=== PATIENT | male | born 1960 | race Caucasian/White ===

== ENCOUNTER 2024-08-28 18:35 | Emergency (ER) | payer MEDICARE, OTHER ==
[2024-08-28 18:45] VITALS: TEMP 99.2
--- NOTE | 2024-08-28 18:58 | ERPHSYRPT ---
- History of Present Illness Time Seen by Provider: 08/28/24 18:50 Historian: patient, EMS Exam Limitations: no limitations Patient Subjective Stated Complaint: Pt reports he started vomiting today along with experiencing stomach pain throughout entire stomach. Triage Nursing Assessment: Pt alert and oriented to person, time, place. Arrived via ambulance, transfered from EMS staff from EMS cot to ED cot. Skin w/p/d. Wound to left upper leg covered with dressing. Active bowel sounds in all four quads. No active vomiting at this time. Abdomen tender in all quads with palpation. Physician History: This is a 64-year-old white male patient who presents to the emergency department with abdominal pain and brought to the emergency department by the general activities therapist service. Patient's primary care provider is Dr. Beard. Today, when the patient woke up, he had several episodes of intermittent vomiting with generalized abdominal pain. Patient denies chest pain. Patient denies shortness of breath, patient denies cough. He has not had a fever. Patient has a history of diabetes and hypertension. Timing/Duration: today Activities at Onset: none Quality: aching Abdominal Pain Onset Location: generalized abdomen Severity of Pain-Max: mild Severity of Pain-Current: mild Modifying Factors: Improves With: vomiting Associated Symptoms: loss of appetite, nausea, vomiting Previous symptoms: no prior history, no recent treatment Allergies/Adverse Reactions: No Known Drug Allergies Allergy (Unverified 08/28/24 18:43) Hx Tetanus, Diphtheria Vaccination/Date Given: Yes Hx Influenza Vaccination/Date Given: Yes Hx Pneumococcal Vaccination/Date Given: No Travel Risk - International Travel Have you traveled outside of the country in past 3 weeks: No - Emerging Infectious Disease Are you exhibiting symptoms associated with any current EIDs: Yes Symptoms: Abdominal Pain, Vomitting - Review of Systems Constitutional: No Symptoms Eyes: No Symptoms Ears, Nose, & Throat: No Symptoms Respiratory: No Symptoms Cardiac: No Symptoms Abdominal/Gastrointestinal: Abdominal Pain, Nausea, Vomiting, Appetite Changes Genitourinary Symptoms: No Symptoms Musculoskeletal: No Symptoms Skin: No Symptoms Neurological: No Symptoms Psychological: No Symptoms Endocrine: No Symptoms Hematologic/Lymphatic: No Symptoms Immunological/Allergic: No Symptoms All Other Systems: Reviewed and Negative - Past Medical History Pertinent Past Medical History: Yes Cardiac History: Hypertension Endocrine Medical History: Diabetes Type II Other Medical History: necrotizing faciitis - Past Surgical History Past Surgical History: Yes Other Surgical History: unknown surgery on neck - Social History Smoking Status: Current every day smoker Exposure to second hand smoke: Yes Drug Use: none - Social Determinants of Health Will the patient participate in the screening: Declined to provide - Nursing Vital Signs Nursing Vital Signs: Initial Vital Signs Pulse Rate 101 H 08/28/24 18:36 Respiratory Rate 13 08/28/24 18:36 Blood Pressure 113/73 08/28/24 18:36 O2 Sat by Pulse Oximetry 99 08/28/24 18:36 Pain Scale Pain Intensity 0 - Physical Exam General Appearance: no apparent distress, alert, thin Eye Exam: PERRL/EOMI, eyes nml inspection Ears, Nose, Throat Exam: normal ENT inspection, moist mucous membranes Neck Exam: normal inspection, non-tender, supple, full range of motion Respiratory Exam: normal breath sounds, lungs clear, airway intact, No chest tenderness, No respiratory distress Cardiovascular Exam: regular rate/rhythm, normal heart sounds, normal peripheral pulses Gastrointestinal/Abdomen Exam: soft, normal bowel sounds, tenderness (Mild diffuse to palpation), guarding (Mild diffuse to palpation), No rebound Rectal Exam: not done Back Exam: normal inspection, normal range of motion, No CVA tenderness, No vertebral tenderness Extremity Exam: normal inspection, normal range of motion, pelvis stable Neurologic Exam: alert, oriented x 3, cooperative, personnel recruiter II-XII nml as tested, nml cerebellar function, nml station & gait, sensation nml Skin Exam: normal color, warm, dry Lymphatic Exam: No adenopathy SpO2 Interpretation: normal SpO2: 97 O2 Delivery: Room Air - Course Nursing assessment & vital signs reviewed: Yes EKG Interpreted by Me: RATE (96), Sinus Rhythm, NORMAL AXIS, NORMAL INTERVALS, NORMAL QRS, NORMAL ST-T, Other (No acute ischemic changes on today's twelve-lead EKG. QTc is 448) Ordered Tests: Active Orders 24 hr Category Date Time Status IV Insertion STAT Care 08/28/24 18:58 Active ABDOMEN AND PELVIS W/0 CONTRAS [CT] Stat Exams 08/28/24 18:58 Taken AMYLASE Stat Lab 08/28/24 19:20 Completed BLOOD CULTURE Stat Lab 08/28/24 19:25 Received CBC W DIFF Stat Lab 08/28/24 19:20 Completed CMP Stat Lab 08/28/24 19:20 Completed LIPASE Stat Lab 08/28/24 19:20 Completed UA W/RFX UR CULTURE Stat Lab 08/28/24 20:08 Completed Medication Summary Discontinued Medications Generic Name Dose Route Start Last Admin Trade Name Milli PRN Reason Stop Dose Admin Sodium Chloride 1,000 mls @ 999 mls/hr 08/28/24 18:58 08/28/24 21:15 Sodium Chloride 0.9% 1000 Ml IV 08/28/24 19:58 Infused .Q1H1M STA Infusion Sodium Chloride Confirm 08/28/24 19:59 Sodium Chloride 0.9% 1000 Ml Administered 08/28/24 20:00 Dose 1,000 mls @ ud .ROUTE .STK-MED ONE Levofloxacin 500 mg 08/28/24 21:53 08/28/24 22:06 Levofloxacin 500 Mg Tablet PO 08/28/24 21:54 500 mg STAT ONE Administration Levofloxacin Confirm 08/28/24 22:01 Levofloxacin 500 Mg Tablet Administered 08/28/24 22:02 Dose 500 mg .ROUTE .STK-MED ONE Metronidazole 500 mg 08/28/24 21:53 08/28/24 22:06 Metronidazole 500 Mg Tablet PO 08/28/24 21:54 500 mg STAT ONE Administration Metronidazole Confirm 08/28/24 22:01 Metronidazole 500 Mg Tablet Administered 08/28/24 22:02 Dose 500 mg .ROUTE .STK-MED ONE Morphine Sulfate 4 mg 08/28/24 18:58 08/28/24 20:12 Morphine Sulfate 4 Mg/Ml Injection IV 08/28/24 18:59 4 mg STAT ONE Administration Morphine Sulfate Confirm 08/28/24 19:58 Morphine Sulfate 4 Mg/Ml Injection Administered 08/28/24 19:59 Dose 4 mg .ROUTE .STK-MED ONE Ondansetron HCl 4 mg 08/28/24 18:58 08/28/24 20:12 Ondansetron Hcl 4 Mg/2 Ml Vial IV 08/28/24 18:59 4 mg STAT ONE Administration Ondansetron HCl Confirm 08/28/24 19:58 Ondansetron Hcl 4 Mg/2 Ml Vial Administered 08/28/24 19:59 Dose 4 mg .ROUTE .STK-MED ONE Ondansetron HCl 4 mg 08/28/24 21:53 08/28/24 22:06 Zofran 4 Mg/Udtablet Orally Disintegrating PO 08/28/24 21:54 4 mg STAT ONE Administration Ondansetron HCl Confirm 08/28/24 22:01 Zofran 4 Mg/Udtablet Orally Disintegrating Administered 08/28/24 22:02 Dose 4 mg .ROUTE .STK-MED ONE Pantoprazole Sodium 40 mg 08/28/24 18:58 08/28/24 20:12 Pantoprazole 40 Mg Vial IV 08/28/24 18:59 40 mg STAT ONE Administration Pantoprazole Sodium Confirm 08/28/24 19:58 Pantoprazole 40 Mg Vial Administered 08/28/24 19:59 Dose 40 mg IV .STK-MED ONE Lab/Rad Data: Laboratory Result Diagrams 08/28/24 19:20 08/28/24 19:20 Laboratory Results 08/28/24 08/28/24 08/28/24 Range/Units 20:08 19:20 19:20 WBC 9.3 H (4.23-9.07) x10^3/uL RBC 3.75 L (4.63-6.08) x10^6/uL Hgb 10.2 L (13.7-17.5) g/dL Hct 32.0 L (40.1-51.0) % MCV 85.3 (79.0-92.2) fL MCH 27.2 (25.7-32.2) pg MCHC 31.9 L (32.3-36.5) g/dL RDW 12.9 (11.6-14.4) % Plt Count 483 H (163-337) x10^3/uL MPV 9.0 L (9.4-12.4) fL Gran % 61.7 (34.0-67.9) % Immature Gran % (Auto) 0.3 (0.001-0.429) % Nucleat RBC Rel Count 0.0 (0.00-0.2) % Eos # (Auto) 0.39 (0.04-0.54) x10^3/uL Immature Gran # (Auto) 0.03 (0.001-0.031) x10^3u/L Absolute Lymphs (auto) 1.90 (1.32-3.57) x10^3/uL Absolute Monos (auto) 1.15 H (0.30-0.82) x10^3/uL Absolute Nucleated RBC 0.00 (0.00-0.012) x10^3u/L Lymphocytes % 20.5 L (21.8-53.1) % Monocytes % 12.4 H (5.3-12.2) % Eosinophils % 4.2 (0.8-7.0) % Basophils % 0.9 (0.2-1.2) % Absolute Granulocytes 5.73 H (1.78-5.38) x10^3/uL Basophils # 0.08 (0.01-0.08) x10^3/uL Sodium 135 (135-145) mmol/L Potassium 4.0 (3.5-5.1) mmol/L Chloride 96 L (98-107) mmol/L Carbon Dioxide 32 H (22-30) mmol/L Anion Gap 11.1 (5-15) MEQ/L BUN 14 (9-20) mg/dL Creatinine 0.68 (0.66-1.25) mg/dL Estimated GFR 103.2 ML/MIN Glucose 213 H (74-106) mg/dL Calcium 8.7 (8.4-10.2) mg/dL Total Bilirubin 0.20 (0.2-1.3) mg/dL AST 16 L (17-59) U/L ALT 12 (0-50) U/L Alkaline Phosphatase 81 (38-126) U/L Serum Total Protein 6.8 (6.3-8.2) g/dL Albumin 3.5 (3.5-5.0) g/dL Amylase 46 (30-110) U/L Lipase 52 (23-300) U/L Urine Color Yellow (Yellow) Urine Appearance Clear (Clear) Urine pH 7.0 (4.6-8.0) Ur Specific Watkins 1.015 (1.005-1.030) Urine Protein Negative (Negative) Urine Glucose (UA) Negative (Negative) mg/dL Urine Ketones Negative (Negative) Urine Blood Negative (Negative) Urine Nitrite Negative (Negative) Urine Bilirubin Negative (Negative) Urine Urobilinogen 0.2 (0.2) mg/dL Ur Leukocyte Esterase Negative (Negative) U Hyaline Cast (Auto) NONE SEEN (0-2) /LPF Urine Microscopic RBC 0-2 (0-5) /HPF Urine Microscopic WBC 0-2 (0-5) /HPF Ur Epithelial Cells None Seen (None Seen) /HPF Urine Bacteria None Seen (None Seen) /HPF Urine Culture Reflexed NO (NO) - Progress Progress: improved, pain not gone completely Progress Note: 08/28/24 21:59 My medical decision making and the assignment of moderate complexity to this patient's medical issue today is based on review of the patient's past medical history, review of the patient's medication list, review of the patient drug allergy list, history present illness and physical findings on examination. The workup includes placement of an intravenous line, CBC, CMP, amylase, lipase, twelve-lead EKG, urinalysis and CT scan of the abdomen pelvis without contrast. Differential diagnosis includes but is not limited to bowel obstruction, pancreatitis, colitis, appendicitis 08/28/24 22:00 I interpreted the patient's laboratory data results. Based on the laboratory data results, the patient has no acute, emergent medical issue. CT scan of the abdomen pelvis without contrast was interpreted by the radiologist and I reviewed the impression. The impression states mid jejunal bowel wall thickening favoring enteritis. There is also constipation and rectal impaction. There is evidence of chronic pancreatitis. 08/28/24 22:15 The patient does not recall which pharmacy he uses and therefore I hand wrote 3 prescriptions: 1. Zofran 4 mg ODT number 10 tablets 1 p.o. every 6 hours as needed nausea vomiting 2. Cipro 500 mg orally number 14 tablets 1 p.o. every 12 hours for 7 days. 3. Flagyl 500 mg orally number 21 tablets 1 p.o. orally every 8 hours for 7 days Counseled pt/family regarding: lab results, diagnosis, need for follow-up, rad results Medical Desision Making - Independent Historian Additional History obtained from: Carding Doubler/EMT - Social Determinants of Health Limited access to: transportation - Diagnostic Testing Diagnostic test were ordered, analyzed, and reviewed by me: Yes Radiological Interpretation: Reviewed by me, Teleradiologist Report - Risk of complications The pt has a mod risk of morbidity or mortality based on: Need for prescription drug management - Departure Departure Disposition: Home Clinical Impression: Constipation, Enteritis Condition: Stable Critical Care Time: No Referrals: DAVE BEARD MD [Primary Care Provider] - Follow up/PCP as directed Additional Instructions: Drink plenty of clear liquids. Take your antibiotics and other medications as prescribed. To help relieve your constipation you may use [id number] fleets enema as well as MiraLAX. Follow directions on the package. Call your primary care provider tomorrow, 08/29/2024 to make arrangements for follow-up appointment for further evaluation management.
[2024-08-28 19:43] LABS: Absolute Neutrophil Ct (ANC) 5.73 x10^3/uL (1.78-5.38); BASOPHIL % 0.9 % (0.2-1.2); Basophil (Absolute #) 0.08 x10^3/uL (0.01-0.08); Eosinophil % 4.2 % (0.8-7.0); Eosinophil (Absolute #) 0.39 x10^3/uL (0.04-0.54); Hemoglobin 10.2 g/dL (13.7-17.5); IMMATURE GRAN # 0.03 x10^3u/L (0.001-0.031); IMMATURE GRAN % 0.3 % (0.001-0.429); Lymphocytes % 20.5 % (21.8-53.1); Mean Cell Volume 85.3 fL (79.0-92.2); Mean Corpuscular Hemoglobin 27.2 pg (25.7-32.2); Mean Corpuscular Hgb Concent. 31.9 g/dL (32.3-36.5); Monocyte (Absolute #) 1.15 x10^3/uL (0.30-0.82); Monocytes % 12.4 % (5.3-12.2); Neutrophil % 61.7 % (34.0-67.9); Platelet Count 483 x10^3/uL (163-337); Red Blood Count 3.75 x10^6/uL (4.63-6.08); Red Cell Distribution Width 12.9 % (11.6-14.4); White Blood Count 9.3 x10^3/uL (4.23-9.07)
[2024-08-28] MEDS ORDERED: Zofran 4 MG/2 ML VIAL ONE (19:58)
[2024-08-28] MEDS ORDERED: MORPHINE SULFATE 4 MG INJ ONE (19:58)
[2024-08-28] MEDS ORDERED: PROTONIX 40 MG IV IV ONE (19:58)
[2024-08-28] MEDS ORDERED: Sodium Chloride 0.9% 1000 ML 1,000 ML ONE (19:59)
[2024-08-28 20:00] LABS: ALBUMIN 3.5 g/dL (3.5-5.0); ANION GAP 11.1 MEQ/L (5-15); BILIRUBIN,TOTAL 0.2 mg/dL (0.2-1.3); Calcium 8.7 mg/dL (8.4-10.2); Creatinine 1 0.68 mg/dL (0.66-1.25); EST GLOMERULAR FILTRATION RATE 103.2 ML/MIN; Total Protein 6.8 g/dL (6.3-8.2)
[2024-08-28] MEDS: Sodium Chloride 0.9% 1000 ML 1,000 ML IV STA (20:08)
[2024-08-28] MEDS: Zofran 4 MG/2 ML VIAL IV ONE (20:12)
[2024-08-28] MEDS: PROTONIX 40 MG IV IV ONE (20:12)
[2024-08-28] MEDS: MORPHINE SULFATE 4 MG INJ IV ONE (20:12)
[2024-08-28 20:41] LABS: Appearance Clear (Clear); Bacteria None Seen /HPF (None Seen); Bilirubin Negative (Negative); Blood Negative (Negative); Epithelial Cells None Seen /HPF (None Seen); Glucose, Urine Negative (Negative); Hyaline Casts NONE SEEN /LPF (0-2); Ketones Negative (Negative); Leukocyte Esterase Negative (Negative); Nitrite Negative (Negative); Protein,Urine Dip Negative (Negative); RBC 0-2 /HPF (0-5); Specific Gravity 1.015 (1.005-1.030); Urobilinogen 0.2 mg/dL (0.2); WBC 0-2 /HPF (0-5)
[2024-08-28] MEDS ORDERED: ZOFRAN ODT 4 MG ONE (22:01)
[2024-08-28] MEDS ORDERED: Flagyl 500 MG ONE (22:01)
[2024-08-28] MEDS ORDERED: Levofloxacin 500 MG Tablet ONE (22:01)
[2024-08-28] MEDS: Levofloxacin 500 MG Tablet PO ONE (22:06)
[2024-08-28] MEDS: ZOFRAN ODT 4 MG PO ONE (22:06)
[2024-08-28] MEDS: Flagyl 500 MG PO ONE (22:06)
[2024-08-29 01:02] VITALS: RESP 16
[2024-08-29 02:02] VITALS: BP 119/68; PULSE 79; O2SAT 96
--- NOTE | 2024-08-29 08:40 | XRAY ---
Indication: Abdomen pain. Vomiting. Multiple contiguous axial images obtained through the abdomen and pelvis without contrast. Comparison: None Lung bases demonstrates mild bibasilar subsegmental atelectasis/scarring. No infiltrate or effusion. Heart not enlarged. Stomach distended with food/fluid. Noncontrasted stomach and bowel loops appear nonobstructed. Several jejunal bowel loops are mildly fluid distended with circumferential wall thickening and stranding favoring enteritis. Moderate diffuse scattered colonic fecal debris including rectal fecal impaction. Chronic pancreatitis calcifications involving the head and tail of pancreas. Incidental 1 cm left mid renal cortical cyst, splenic calcified granulomas, prostate calcifications, and cholecystomy clips. No free fluid/air. Remaining liver, pancreas, spleen, adrenal glands, kidneys, ureters, and bladder are unremarkable for noncontrast exam. Moderate scattered aortoiliac calcifications with minimal distal aortic ectasia. Osseous structures intact with osteopenia and mild degenerative changes both hips. Impression: 1. CT findings as detailed favoring enteritis. Also moderate diffuse fecal stasis with rectal fecal impaction. 2. Chronic findings including chronic pancreatitis calcifications, right renal cyst, benign prostate calcifications, arteriosclerotic disease with distal aortic ectasia, and chronic bony findings.
== END 2024-08-29 02:03 | disposition home or self-care (01) ==
LOC: ED 18:35
DX: K59.00 Constipation, unspecified (principal); K52.9 Noninfective gastroenteritis and colitis, unspecified; R11.2 Nausea with vomiting, unspecified; R10.84 Generalized abdominal pain; E11.9 Type 2 diabetes mellitus without complications; I10 Essential (primary) hypertension; Z79.899 Other long term (current) drug therapy; Z72.0 Tobacco use; Z59.82 Transportation insecurity
CPT/HCPCS: 36000; 36415; 74176; 80053; 81001; 82150; 83690; 85025; 87040; 96360; 96361; 96374; 96375; 99284; 99285; J2270; J2405; Q0162; A9270-GY

== ENCOUNTER 2024-08-30 21:26 | Emergency (ER) | payer MEDICARE, OTHER ==
[2024-08-30 21:55] VITALS: RESP 16; TEMP 98.4
--- NOTE | 2024-08-30 22:09 | ERPHSYRPT ---
- History of Present Illness Time Seen by Provider: 08/30/24 22:00 Source: patient Exam Limitations: no limitations Patient Subjective Stated [facility] all day and has not been able to hold anything down. nurse states that pt is on antibiotics for wound to left leg. pt states that antibiotics are making him sick to his stomach Triage Nursing Assessment: pt came into the er via ambulance; pt was transfer to cot per ems staff; pt is axo x3; c/o abd pain; pt states 10/10 pain to LUQ and LLE; skin pale, warm, dry; abd soft, tender to LUQ; active bowel sounds in all quads; mucus membranes pink and moist; c/o N/V; no respiratory distress present; vitals wnl Physician History: 64-year-old male presents to our ED via EMS from [facility] for evaluation of nausea and vomiting. Patient has a history of necrotizing fasciitis that was recently debrided. Patient started on doxycycline cefepime and Flagyl. Since the start of this medication patient has been experiencing nausea vomiting decreased oral intake. Patient states he feels weak. Patient having pain at the surgical site. Pain described as an ache that is localized no radiation. Patient currently has a wound VAC. No systemic manifestations of sepsis. Patient is not tachycardic no fever. Strong blood pressure. Patient otherwise feels well. He voices no other complaints or concerns at this time. Portions of this note were created with voice recognition technology. There may be grammatical, spelling, punctuation or sound alike errors Timing/Duration: today Severity: moderate Modifying Factors: Improves With: nothing Associated Symptoms: denies symptoms Allergies/Adverse Reactions: No Known Drug Allergies Allergy (Unverified 08/28/24 18:43) Home Medications: Aspirin [Ecotrin] 81 mg PO DAILY 08/30/24 [History] Cefpodoxime Proxetil 200 mg PO BID 08/30/24 [History] Doxycycline Hyclate 100 mg [Vibramycin 100 MG] 100 mg PO BID 08/30/24 [History] Furosemide [Lasix] 20 mg PO BID 08/30/24 [History] Gabapentin 600 mg PO Q6H 08/30/24 [History] Hydrocodone/Acetaminophen [Hydrocodone-Acetamin 10-325 mg] 1 each PO Q4HPRN PRN 08/30/24 [History] Insulin Glargine [Lantus Insulin] 10 unit SQ HS 08/30/24 [History] Insulin Lispro [Humalog] 1 unit SQ 08/30/24 [History] Metformin HCl [Metformin HCl ER] 750 mg PO EVENING MEAL 08/30/24 [History] Metronidazole 500 mg [Flagyl 500 MG] 500 mg PO TID 08/30/24 [History] Ondansetron ODT 4 MG [Zofran Odt 4 mg] 4 mg PO Q6H PRN PRN 08/30/24 [History] lisinopriL [Lisinopril] 5 mg PO DAILY 08/30/24 [History] Hx Tetanus, Diphtheria Vaccination/Date Given: Yes Hx Influenza Vaccination/Date Given: Yes Hx Pneumococcal Vaccination/Date Given: No Travel Risk - International Travel Have you traveled outside of the country in past 3 weeks: No - Emerging Infectious Disease Are you exhibiting symptoms associated with any current EIDs: Yes Symptoms: Abdominal Pain, Vomitting - Review of Systems Constitutional: No Symptoms, No Fever, No Chills Eyes: No Symptoms Ears, Nose, & Throat: No Symptoms Respiratory: No Symptoms, No Cough, No Dyspnea Cardiac: No Symptoms, No Chest Pain, No Edema, No Syncope Abdominal/Gastrointestinal: No Symptoms, No Abdominal Pain, No Nausea, No Vomiting, No Diarrhea Genitourinary Symptoms: No Symptoms, No Dysuria Musculoskeletal: No Symptoms, No Back Pain, No Neck Pain Skin: No Symptoms, No Rash Neurological: No Symptoms, No Dizziness, No Focal Weakness, No Sensory Changes Psychological: No Symptoms Endocrine: No Symptoms Hematologic/Lymphatic: No Symptoms Immunological/Allergic: No Symptoms All Other Systems: Reviewed and Negative - Past Medical History Pertinent Past Medical History: Yes Neurological History: Stroke, TIA Cardiac History: Hypertension Endocrine Medical History: Diabetes Type II Other Medical History: necrotizing faciitis - Past Surgical History Past Surgical History: Yes Cardiac: Pacemaker Other Surgical History: unknown surgery on neck - Social History Smoking Status: Current every day smoker Exposure to second hand smoke: Yes Drug Use: none - Social Determinants of Health Will the patient participate in the screening: Declined to provide - Nursing Vital Signs Nursing Vital Signs: Initial Vital Signs Temperature 98.4 F 08/30/24 21:27 Pulse Rate 92 H 08/30/24 21:27 Respiratory Rate 16 08/30/24 21:27 Blood Pressure 108/65 08/30/24 21:27 O2 Sat by Pulse Oximetry 98 08/30/24 21:27 Pain Scale Pain Intensity 4 - Physical Exam General Appearance: no apparent distress, alert Eye Exam: PERRL/EOMI, eyes nml inspection Ears, Nose, Throat Exam: normal ENT inspection, TMs normal, pharynx normal, moist mucous membranes Neck Exam: normal inspection, non-tender, supple, full range of motion Respiratory Exam: normal breath sounds, lungs clear, No respiratory distress Cardiovascular Exam: regular rate/rhythm, normal heart sounds, normal peripheral pulses Gastrointestinal/Abdomen Exam: soft, normal bowel sounds, tenderness, other (Pe riumbilical tenderness.), No mass Back Exam: normal inspection, normal range of motion, No CVA tenderness, No vertebral tenderness Extremity Exam: normal inspection, normal range of motion, pelvis stable, other (Intact wound VAC. Involved lower extremities neurovascular tact distally compartments are soft cap refill less than 2 seconds) Neurologic Exam: alert, oriented x 3, cooperative, normal mood/affect, sensation nml, No motor deficits Skin Exam: normal color, warm, dry, No rash Lymphatic Exam: No adenopathy SpO2 Interpretation: normal SpO2: 98 O2 Delivery: Room Air - Course Nursing assessment & vital signs reviewed: Yes - CT Exams Abdomen/Pelvis CT Interpretation: Tele-radiologist Report (Enteritis) Ordered Tests: Active Orders 24 hr Category Date Time Status Economics Analyst STAT Care 08/30/24 22:05 Active IV Insertion STAT Care 08/30/24 22:05 Active Pulse Oximetry (ED) STAT Care 08/30/24 22:05 Active ABDOMEN AND PELVIS W/0 CONTRAS [CT] Stat Exams 08/30/24 22:39 Completed CBC W DIFF Stat Lab 08/30/24 22:13 Completed CMP Stat Lab 08/30/24 22:13 Completed TROPONIN Q4H Lab 08/30/24 22:13 Completed TROPONIN Q4H Lab 08/31/24 02:15 Ordered TROPONIN Q4H Lab 08/31/24 06:15 Ordered Medication Summary Generic Name Dose Route Start Last Admin Trade Name Freq PRN Reason Stop Dose Admin Sodium Chloride 1,000 mls @ 100 mls/hr 08/30/24 22:15 08/30/24 22:31 Sodium Chloride 0.9% 1000 Ml IV 09/29/24 22:14 100 mls/hr .Q10H BELLE Administration Discontinued Medications Generic Name Dose Route Start Last Admin Trade Name Milli PRN Reason Stop Dose Admin Metoclopramide HCl 10 mg 08/31/24 00:51 08/31/24 00:59 Metoclopramide Hcl 10 Mg/2 Ml Vial IV 08/31/24 00:52 10 mg STAT ONE Administration Metoclopramide HCl Confirm 08/31/24 00:58 Metoclopramide Hcl 10 Mg/2 Ml Vial Administered 08/31/24 00:59 Dose 10 mg .ROUTE .STK-MED ONE Morphine Sulfate 4 mg 08/30/24 22:08 08/30/24 22:31 Morphine Sulfate 4 Mg/Ml Injection IV 08/30/24 22:09 4 mg STAT ONE Administration Morphine Sulfate Confirm 08/30/24 22:30 Morphine Sulfate 4 Mg/Ml Injection Administered 08/30/24 22:31 Dose 4 mg .ROUTE .STK-MED ONE Morphine Sulfate 4 mg 08/31/24 00:27 08/31/24 00:29 Morphine Sulfate 4 Mg/Ml Injection IV 08/31/24 00:28 4 mg STAT ONE Administration Morphine Sulfate Confirm 08/31/24 00:29 Morphine Sulfate 4 Mg/Ml Injection Administered 08/31/24 00:30 Dose 4 mg .ROUTE .STK-MED ONE Ondansetron HCl 4 mg 08/30/24 22:08 08/30/24 22:29 Ondansetron Hcl 4 Mg/2 Ml Vial IV 08/30/24 22:09 Not Given STAT ONE Lab/Rad Data: Laboratory Result Diagrams 08/30/24 22:13 08/30/24 22:13 Laboratory Results 08/30/24 08/30/24 08/30/24 Range/Units 22:13 22:13 22:13 WBC 12.2 H (4.23-9.07) x10^3/uL RBC 3.71 L (4.63-6.08) x10^6/uL Hgb 10.2 L (13.7-17.5) g/dL Hct 31.3 L (40.1-51.0) % MCV 84.4 (79.0-92.2) fL MCH 27.5 (25.7-32.2) pg MCHC 32.6 (32.3-36.5) g/dL RDW 13.2 (11.6-14.4) % Plt Count 450 H (163-337) x10^3/uL MPV 8.8 L (9.4-12.4) fL Gran % 85.1 H (34.0-67.9) % Immature Gran % (Auto) 0.4 (0.001-0.429) % Nucleat RBC Rel Count 0.0 (0.00-0.2) % Eos # (Auto) 0.26 (0.04-0.54) x10^3/uL Immature Gran # (Auto) 0.05 H (0.001-0.031) x10^3u/L Absolute Lymphs (auto) 0.99 L (1.32-3.57) x10^3/uL Absolute Monos (auto) 0.49 (0.30-0.82) x10^3/uL Absolute Nucleated RBC 0.00 (0.00-0.012) x10^3u/L Lymphocytes % 8.1 L (21.8-53.1) % Monocytes % 4.0 L (5.3-12.2) % Eosinophils % 2.1 (0.8-7.0) % Basophils % 0.3 (0.2-1.2) % Absolute Granulocytes 10.38 H (1.78-5.38) x10^3/uL Basophils # 0.04 (0.01-0.08) x10^3/uL Sodium 136 (135-145) mmol/L Potassium 4.1 (3.5-5.1) mmol/L Chloride 100 (98-107) mmol/L Carbon Dioxide 27 (22-30) mmol/L Anion Gap 13.4 (5-15) MEQ/L BUN 16 (9-20) mg/dL Creatinine 0.64 L (0.66-1.25) mg/dL Estimated GFR 105.1 ML/MIN Glucose 157 H (74-106) mg/dL Calcium 8.7 (8.4-10.2) mg/dL Total Bilirubin 0.40 (0.2-1.3) mg/dL AST 17 (17-59) U/L ALT 10 (0-50) U/L Alkaline Phosphatase 82 (38-126) U/L Troponin I < 0.012 (0.000-0.033) ng/mL Serum Total Protein 6.8 (6.3-8.2) g/dL Albumin 3.5 (3.5-5.0) g/dL - Progress Progress: improved Progress Note: 64-year-old male presents to our emergency department for evaluation of nausea and vomiting. Patient currently on antibiotics to treat necrotizing fasciitis. Laboratory workup obtained shows no acutely concerning abnormalities, CT scan abdomen pelvis reveals an enteritis. Patient reassessed. Pain significantly improved. Patient tolerating p.o. Patient states he is ready for discharge. No indication for further workup at this time. Patient agrees to follow-up with his primary care doctor within 48 hours for evaluation. He voices no other complaints or concerns at this time. Portions of this note were created with voice recognition technology. There may be grammatical, spelling, punctuation or sound alike errors Complexity of problem addressed is moderate acute complicated no critical care time. Complex of data reviewed and analyzed is moderate. Test ordered chest reviewed results analyzed and correlated clinically with history and physical exam. Risk of complication and or risk of morbidity/mortality of patient man agement is low. Vital stable. Time spent to discharge patient is approximately 10 minutes. Plan of care established for shared decision making. No social determinants of health present to impede follow-up Portions of this note were created with voice recognition technology. There may be grammatical, spelling, punctuation or sound alike errors 08/31/24 01:19 08/31/24 01:20 Counseled pt/family regarding: lab results, diagnosis, need for follow-up, rad results - Departure Departure Disposition: Home Clinical Impression: Abdominal pain, Nausea & vomiting, Enteritis Condition: Stable Critical Care Time: No Referrals: DAVE BEARD MD [Primary Care Provider] - Follow up/PCP as directed Additional Instructions: Discharge/Care Plan Agustin Sweeney was seen on 08/31/24 in the Emergency Room. The patient was counseled regarding Diagnosis,Lab results, Imaging studies, need for follow up and when to return to the Emergency Room. Prescriptions given: Discharge Note I have spoken with the patient and/or caregivers. I have explained the patient's condition, diagnosis and treatment plan based on the information available to me at this time. I have answered the patient's and/or caregiver's questions and addressed any concerns. The patient and/or caregivers have as good understanding of the patient's diagnosis, condition and treatment plan as can be expected at this point. The vital signs have been stable. The patient's condition is stable and appropriate for discharge from the emergency department. The patient will pursue further outpatient evaluation with the primary care physician or other designated or consulting physician as outlined in the discharge instructions. The patient and/or caregivers are agreeable to this plan of care and follow-up instructions have been explained in detail. The patient and/or caregivers have received these instruction. The patient/and or caregivers are aware that any significant change in condition or worsening of symptoms should prompt an immediate return to this or the closest emergency department or call 911.
[2024-08-30 22:18] LABS: Absolute Neutrophil Ct (ANC) 10.38 x10^3/uL (1.78-5.38); BASOPHIL % 0.3 % (0.2-1.2); Basophil (Absolute #) 0.04 x10^3/uL (0.01-0.08); Eosinophil % 2.1 % (0.8-7.0); Eosinophil (Absolute #) 0.26 x10^3/uL (0.04-0.54); Hematocrit 31.3 % (40.1-51.0); Hemoglobin 10.2 g/dL (13.7-17.5); IMMATURE GRAN # 0.05 x10^3u/L (0.001-0.031); IMMATURE GRAN % 0.4 % (0.001-0.429); Lymphocyte (Absolute #) 0.99 x10^3/uL (1.32-3.57); Lymphocytes % 8.1 % (21.8-53.1); Mean Cell Volume 84.4 fL (79.0-92.2); Mean Corpuscular Hemoglobin 27.5 pg (25.7-32.2); Mean Corpuscular Hgb Concent. 32.6 g/dL (32.3-36.5); Mean Platelet Volume 8.8 fL (9.4-12.4); Monocyte (Absolute #) 0.49 x10^3/uL (0.30-0.82); Neutrophil % 85.1 % (34.0-67.9); Platelet Count 450 x10^3/uL (163-337); Red Blood Count 3.71 x10^6/uL (4.63-6.08); Red Cell Distribution Width 13.2 % (11.6-14.4); White Blood Count 12.2 x10^3/uL (4.23-9.07)
[2024-08-30] MEDS: Zofran 4 MG/2 ML VIAL IV ONE (22:29)
[2024-08-30] MEDS ORDERED: MORPHINE SULFATE 4 MG INJ ONE (22:30)
[2024-08-30] MEDS ORDERED: Sodium Chloride 0.9% 1000 ML 1,000 ML ONE (22:30)
[2024-08-30] MEDS: MORPHINE SULFATE 4 MG INJ IV ONE (22:31)
[2024-08-30] MEDS: Sodium Chloride 0.9% 1000 ML 1,000 ML IV SCH (22:31)
[2024-08-30 22:34] LABS: ALBUMIN 3.5 g/dL (3.5-5.0); ANION GAP 13.4 MEQ/L (5-15); BILIRUBIN,TOTAL 0.4 mg/dL (0.2-1.3); Calcium 8.7 mg/dL (8.4-10.2); Creatinine 1 0.64 mg/dL (0.66-1.25); EST GLOMERULAR FILTRATION RATE 105.1 ML/MIN; Potassium 4.1 mmol/L (3.5-5.1); Total Protein 6.8 g/dL (6.3-8.2)
[2024-08-31] MEDS ORDERED: MORPHINE SULFATE 4 MG INJ ONE (00:29)
[2024-08-31] MEDS: MORPHINE SULFATE 4 MG INJ IV ONE (00:29)
--- NOTE | 2024-08-31 00:35 | XRAY ---
CLINICAL HISTORY: pain COMPARISON: 08/28/2024 TECHNIQUE: CT scan of the abdomen and pelvis was performed with IV contrast. Coronal and sagittal reconstructive images were also obtained.One of the following dose reduction techniques were utilized for this exam: Automated exposure control, adjustment of the mA and/or kV according to patient size, use of iterative reconstruction. FINDINGS: Abdomen: The liver is normal in size. No focal or diffuse parenchymal abnormality. The intrahepatic biliary radicals and the bile ducts are normal. Postcholecystectomy status.. A 3 x1.5 cm peripherally calcified structure along the tail of the pancreas, this could represent aneurysmal dilatation of splenic artery/ calcified cyst. Possibility of pancreatic lesion cannot be excluded. 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 Other possible differentials would be calcified node. Similar 1.8 cm lesion is seen abutting the hepatic flexure and also in mid abdomen. Old calcified granulomas in spleen. Mild pancreatic parenchymal atrophy with prominent pancreatic duct The adrenal glands are unremarkable. The kidneys are normal in size and shape. No hydronephrosis. Tiny calcific foci in kidneys could represent vascular calcification. Possibility of calculi appears less likely A 16 mm partially exophytic isodense lesion at the upper pole of the right kidney in the posterior aspect, possible cyst. A 12 mm hypodense lesion at the lower pole of the left kidney, likely a renal cyst. Mild mesenteric haziness noted. Multiple fluid-filled small bowel loops, possible enteritis. Atherosclerotic calcification of abdominal aorta and iliac arteries noted. Mild internal displacement of edema in the infrarenal portion of abdominal aorta. Pelvis: The urinary bladder is unremarkable. The rectosigmoid colon is unremarkable. Calcification seen in the prostate. Degenerative changes in lumbar spine were noted. Mild superior endplate collapse of L3 vertebral body. IMPRESSION: 1. Mild mesenteric haziness with multiple fluid-filled small bowel loops, possible enteritis. Recommended clinical correlation 2. Multiple peripherally calcified lesions in abdomen as described above, possible differentials include aneurysmal dilatation of vascular structure, peripherally calcified mesenteric/visceral lesions, hydatid cysts. Recommended contrast-enhanced study for better evaluation 3. Tiny calcific foci in kidneys could represent vascular calcification. The possibility of calculi appears less likely 4. A 16 mm partially exophytic isodense lesion at upper pole of right kidney in posterior aspect, possible cyst. 5. A 12 mm hypodense lesion at lower pole of left kidney, likely renal cyst. 6. Old calcified granulomas in spleen. 7. No interval changes since prior study Electronically Signed by: Marcel Smith MD. (08/31/2024 00:31:37 EST)
[2024-08-31] MEDS ORDERED: Reglan 10 MG/2 ML ONE (00:58)
[2024-08-31] MEDS: Reglan 10 MG/2 ML IV ONE (00:59)
[2024-08-31 02:09] VITALS: BP 102/67; PULSE 92; O2SAT 98
== END 2024-08-31 02:18 ==
LOC: ED 21:26
DX: R11.2 Nausea with vomiting, unspecified (principal); R53.1 Weakness; R10.9 Unspecified abdominal pain; K52.9 Noninfective gastroenteritis and colitis, unspecified; Z79.899 Other long term (current) drug therapy
CPT/HCPCS: 36000; 36415; 74176; 80053; 84484; 85025; 93041; 94760; 96374; 99284; J2270

== ENCOUNTER 2024-09-13 17:57 | Emergency (ER) | payer MEDICARE, OTHER ==
[2024-09-13 18:30] VITALS: TEMP 98.4
--- NOTE | 2024-09-13 18:35 | ERPHSYRPT ---
- History of Present Illness Time Seen by Provider: 09/13/24 18:07 Historian: patient Exam Limitations: no limitations Patient Subjective Stated Complaint: Per pt he has had nausea x3 days, vomiting since yesterday, abdominal pain as of today. Last BM was yesterday with blood per pt, per [facility] last BM was today. Per [facility] pt has wound vac to inner thigh that he finished dozy and flagyl for on 09/06/24. Pt currently on cipro that he is scheduled to finish on 09/17/24. [facility]. Triage Nursing Assessment: Pt alert and oriented to person, place and day of week at time of triage. No active vomiting at this time. Active bowel sounds in all four quads, abdomen soft/tender with palpation. Skin w/p/d. Arrived via EMS. Respirations easy/nonlabored. Appears to be in no distress. Physician History: 64-year-old male with multiple medical problems including hypertension, hyperlipidemia, diabetes mellitus, infection left thigh with wound VAC on, recently finished course of antibiotics currently on Cipro for enteritis presented in the ER with 3 days history of nausea and vomiting since yesterday with abdominal pain. Patient reports dull aching mild to moderate abdominal pain with multiple episodes of nonprojectile, nonbilious vomiting without hematemesis. Denies any fever or chills but weakness all over. He received Zofran at the senior care but did not get much relief. Allergies/Adverse Reactions: No Known Drug Allergies Allergy (Verified 09/13/24 18:10) Home Medications: Aspirin [Ecotrin] 81 mg PO DAILY 08/30/24 [History] Furosemide [Lasix] 20 mg PO BID 08/30/24 [History] Gabapentin 600 mg PO Q6H 08/30/24 [History] Hydrocodone/Acetaminophen [Hydrocodone-Acetamin 10-325 mg] 1 each PO Q4HPRN PRN 08/30/24 [History] Insulin Glargine [Lantus Insulin] 10 unit SQ HS 08/30/24 [History] Insulin Lispro [Humalog] See Rx Instructions .ROUTE .COMPLEX 08/30/24 [History] Metformin HCl [Metformin HCl ER] 750 mg PO EVENING MEAL 08/30/24 [History] Ondansetron ODT 4 MG [Zofran Odt 4 mg] 4 mg PO Q6H PRN PRN 08/30/24 [History] lisinopriL [Lisinopril] 5 mg PO DAILY 08/30/24 [History] Ciprofloxacin [Cipro 500 MG] 500 mg PO BID 09/13/24 [History] Hx Tetanus, Diphtheria Vaccination/Date Given: (unknown) Hx Influenza Vaccination/Date Given: (unknown) Hx Pneumococcal Vaccination/Date Given: No Travel Risk - International Travel Have you traveled outside of the country in past 3 weeks: No - Emerging Infectious Disease Are you exhibiting symptoms associated with any current EIDs: Yes Symptoms: Abdominal Pain, Vomitting - Review of Systems Constitutional: Fatigue, Weakness Eyes: No Symptoms Ears, Nose, & Throat: No Symptoms Respiratory: No Symptoms Cardiac: No Symptoms Abdominal/Gastrointestinal: Abdominal Pain, Nausea, Vomiting Genitourinary Symptoms: No Symptoms Musculoskeletal: No Symptoms Neurological: No Symptoms Psychological: No Symptoms Endocrine: No Symptoms Hematologic/Lymphatic: No Symptoms Immunological/Allergic: No Symptoms - Past Medical History Pertinent Past Medical History: Yes Neurological History: Stroke, TIA Cardiac History: Hypertension Endocrine Medical History: Diabetes Type II Other Medical History: necrotizing faciitis - Past Surgical History Past Surgical History: Yes Cardiac: Pacemaker Other Surgical History: unknown surgery on neck - Social History Smoking Status: Current every day smoker Exposure to second hand smoke: No Drug Use: none - Social Determinants of Health Will the patient participate in the screening: Declined to provide - Nursing Vital Signs Nursing Vital Signs: Initial Vital Signs Temperature 98.4 F 09/13/24 17:57 Pulse Rate 88 09/13/24 17:57 Respiratory Rate 20 09/13/24 17:57 Blood Pressure 148/101 09/13/24 17:57 O2 Sat by Pulse Oximetry 98 09/13/24 17:57 Pain Scale Pain Intensity 10 - Physical Exam General Appearance: no apparent distress Eye Exam: PERRL/EOMI Ears, Nose, Throat Exam: normal ENT inspection Neck Exam: normal inspection, full range of motion Respiratory Exam: normal breath sounds, lungs clear Cardiovascular Exam: regular rate/rhythm, normal heart sounds Gastrointestinal/Abdomen Exam: soft, normal bowel sounds, tenderness (Generalized tenderness), No guarding Extremity Exam: normal inspection, normal range of motion Neurologic Exam: alert, oriented x 3, cooperative Skin Exam: normal color, other (Wound VAC well applied on left posterior thigh with no erythema around.) SpO2 Interpretation: normal SpO2: 98 O2 Delivery: Room Air Ordered Tests: Active Orders 24 hr Category Date Time Status IV Insertion STAT Care 09/13/24 18:31 Active NPO (ED) STAT Care 09/13/24 18:31 Active ABDOMEN AND PELVIS W CONTRAST [CT] Stat Exams 09/13/24 19:19 Taken CBC W DIFF Stat Lab 09/13/24 18:00 Completed CMP Stat Lab 09/13/24 18:00 Completed LIPASE Stat Lab 09/13/24 18:00 Completed TROPONIN Q4H Lab 09/13/24 18:00 Completed TROPONIN Q4H Lab 09/13/24 22:45 Ordered TROPONIN Q4H Lab 09/14/24 02:45 Ordered UA W/RFX UR CULTURE Stat Lab 09/13/24 21:21 Received Medication Summary Discontinued Medications Generic Name Dose Route Start Last Admin Trade Name Freq PRN Reason Stop Dose Admin Sodium Chloride 1,000 mls @ 999 mls/hr 09/13/24 18:31 09/13/24 20:57 Sodium Chloride 0.9% 1000 Ml IV 09/13/24 19:31 Infused .Q1H1M STA Infusion Sodium Chloride Confirm 09/13/24 18:38 Sodium Chloride 0.9% 1000 Ml Administered 09/13/24 18:39 Dose 1,000 mls @ ud .ROUTE .STK-MED ONE Morphine Sulfate 4 mg 09/13/24 20:27 09/13/24 20:32 Morphine Sulfate 4 Mg/Ml Injection IV 09/13/24 20:28 4 mg STAT ONE Administration Morphine Sulfate Confirm 09/13/24 20:30 Morphine Sulfate 4 Mg/Ml Injection Administered 09/13/24 20:31 Dose 4 mg .ROUTE .STK-MED ONE Ondansetron HCl 4 mg 09/13/24 18:31 09/13/24 18:43 Ondansetron Hcl 4 Mg/2 Ml Vial IV 09/13/24 18:32 4 mg STAT ONE Administration Ondansetron HCl Confirm 09/13/24 18:38 Ondansetron Hcl 4 Mg/2 Ml Vial Administered 09/13/24 18:39 Dose 4 mg .ROUTE .STK-MED ONE Lab/Rad Data: Laboratory Result Diagrams 09/13/24 18:00 09/13/24 18:00 Laboratory Results 09/13/24 09/13/24 09/13/24 Range/Units 18:00 18:00 18:00 WBC 6.0 (4.23-9.07) x10^3/uL RBC 3.98 L (4.63-6.08) x10^6/uL Hgb 10.7 L (13.7-17.5) g/dL Hct 33.6 L (40.1-51.0) % MCV 84.4 (79.0-92.2) fL MCH 26.9 (25.7-32.2) pg MCHC 31.8 L (32.3-36.5) g/dL RDW 13.6 (11.6-14.4) % Plt Count 468 H (163-337) x10^3/uL MPV 9.9 (9.4-12.4) fL Gran % 61.3 (34.0-67.9) % Immature Gran % (Auto) 0.3 (0.001-0.429) % Nucleat RBC Rel Count 0.0 (0.00-0.2) % Eos # (Auto) 0.25 (0.04-0.54) x10^3/uL Immature Gran # (Auto) 0.02 (0.001-0.031) x10^3u/L Absolute Lymphs (auto) 1.59 (1.32-3.57) x10^3/uL Absolute Monos (auto) 0.44 (0.30-0.82) x10^3/uL Absolute Nucleated RBC 0.00 (0.00-0.012) x10^3u/L Lymphocytes % 26.4 (21.8-53.1) % Monocytes % 7.3 (5.3-12.2) % Eosinophils % 4.2 (0.8-7.0) % Basophils % 0.5 (0.2-1.2) % Absolute Granulocytes 3.69 (1.78-5.38) x10^3/uL Basophils # 0.03 (0.01-0.08) x10^3/uL Sodium 135 (135-145) mmol/L Potassium 4.1 (3.5-5.1) mmol/L Chloride 98 (98-107) mmol/L Carbon Dioxide 31 H (22-30) mmol/L Anion Gap 10.1 (5-15) MEQ/L BUN 10 (9-20) mg/dL Creatinine 0.62 L (0.66-1.25) mg/dL Estimated GFR 106.1 ML/MIN Glucose 244 H (74-106) mg/dL Calcium 8.9 (8.4-10.2) mg/dL Total Bilirubin 0.30 (0.2-1.3) mg/dL AST 15 L (17-59) U/L ALT 10 (0-50) U/L Alkaline Phosphatase 68 (38-126) U/L Troponin I < 0.012 (0.000-0.033) ng/mL Serum Total Protein 6.2 L (6.3-8.2) g/dL Albumin 3.4 L (3.5-5.0) g/dL Lipase 138 (23-300) U/L - Progress Progress: improved Progress Note: 09/13/24 21:40 64-year-old is evaluated in the ER for abdominal pain with nausea vomiting. Patient is from senior care and has wound VAC applied. Patient has minimal tenderness and abdomen generalized. Given symptomatic treatment, feeling better on reevaluation. Workup showed normal white count, chemistries fairly unremarkable except for glucose in 200s. CT abdomen pelvis showed chronic pancreatitis with normal lipase, fecal stasis and other nonacute findings. Recommended daily MiraLAX and stool softener. Do not think patient needs to be admitted and is stable for discharge. Discussed the results of workup with patient, recommended outpatient follow-up which she seems understanding. Counseled pt/family regarding: lab results, diagnosis, need for follow-up, rad results, smoking cessation Medical Desision Making - Independent Historian Additional History obtained from: Residential nurse, Model Maker Apprentice/EMT - Diagnostic Testing Diagnostic test were ordered, analyzed, and reviewed by me: Yes Radiological Interpretation: Reviewed by me, Teleradiologist Report - Risk of complications The pt has a mod risk of morbidity or mortality based on: Need for prescription drug management - Departure Departure Disposition: Home Clinical Impression: Nausea & vomiting, Constipation, Abdominal pain Condition: Stable Critical Care Time: No Referrals: DAVE BEARD MD [Primary Care Provider] - Follow up with PCP 1 day Instructions: Severe Abdominal Pain, Adult (DC) Additional Instructions: Take daily MiraLAX and stool softener. Continue with your current antibiotics. Follow-up with primary care for reevaluation. Return to ER for intractable pain/vomiting or if develop fever chills etc.
[2024-09-13 18:36] LABS: Absolute Neutrophil Ct (ANC) 3.69 x10^3/uL (1.78-5.38); BASOPHIL % 0.5 % (0.2-1.2); Basophil (Absolute #) 0.03 x10^3/uL (0.01-0.08); Eosinophil % 4.2 % (0.8-7.0); Eosinophil (Absolute #) 0.25 x10^3/uL (0.04-0.54); Hematocrit 33.6 % (40.1-51.0); Hemoglobin 10.7 g/dL (13.7-17.5); IMMATURE GRAN # 0.02 x10^3u/L (0.001-0.031); IMMATURE GRAN % 0.3 % (0.001-0.429); Lymphocyte (Absolute #) 1.59 x10^3/uL (1.32-3.57); Lymphocytes % 26.4 % (21.8-53.1); Mean Cell Volume 84.4 fL (79.0-92.2); Mean Corpuscular Hemoglobin 26.9 pg (25.7-32.2); Mean Corpuscular Hgb Concent. 31.8 g/dL (32.3-36.5); Mean Platelet Volume 9.9 fL (9.4-12.4); Monocyte (Absolute #) 0.44 x10^3/uL (0.30-0.82); Monocytes % 7.3 % (5.3-12.2); Neutrophil % 61.3 % (34.0-67.9); Platelet Count 468 x10^3/uL (163-337); Red Blood Count 3.98 x10^6/uL (4.63-6.08); Red Cell Distribution Width 13.6 % (11.6-14.4)
[2024-09-13] MEDS ORDERED: Zofran 4 MG/2 ML VIAL ONE (18:38)
[2024-09-13] MEDS ORDERED: Sodium Chloride 0.9% 1000 ML 1,000 ML ONE (18:38)
[2024-09-13 18:43] LABS: ALBUMIN 3.4 g/dL (3.5-5.0); ANION GAP 10.1 MEQ/L (5-15); BILIRUBIN,TOTAL 0.3 mg/dL (0.2-1.3); Calcium 8.9 mg/dL (8.4-10.2); Creatinine 1 0.62 mg/dL (0.66-1.25); EST GLOMERULAR FILTRATION RATE 106.1 ML/MIN; Potassium 4.1 mmol/L (3.5-5.1); Total Protein 6.2 g/dL (6.3-8.2)
[2024-09-13] MEDS: Sodium Chloride 0.9% 1000 ML 1,000 ML IV STA (18:43)
[2024-09-13] MEDS: Zofran 4 MG/2 ML VIAL IV ONE (18:43)
[2024-09-13] MEDS ORDERED: MORPHINE SULFATE 4 MG INJ ONE (20:30)
[2024-09-13] MEDS: MORPHINE SULFATE 4 MG INJ IV ONE (20:32)
[2024-09-13 21:34] LABS: Appearance Clear (Clear); Bacteria None Seen /HPF (None Seen); Bilirubin Negative (Negative); Blood Negative (Negative); Epithelial Cells None Seen /HPF (None Seen); Glucose, Urine 250 mg/dL (Negative); Hyaline Casts NONE SEEN /LPF (0-2); Ketones Negative (Negative); Leukocyte Esterase Negative (Negative); Nitrite Negative (Negative); Protein,Urine Dip Negative (Negative); RBC 0-2 /HPF (0-5); Specific Gravity 1.025 (1.005-1.030); Urobilinogen 0.2 mg/dL (0.2); WBC 0-2 /HPF (0-5)
[2024-09-14 00:53] VITALS: RESP 12
[2024-09-14 03:49] VITALS: BP 161/72; PULSE 74; O2SAT 96
--- NOTE | 2024-09-14 08:49 | XRAY ---
Indication: Abdomen pain and vomiting. Multiple contiguous axial images obtained through the abdomen and pelvis using 80 cc Isovue 370 contrast. Comparison: August 30, 2024 Lung bases again demonstrates pulmonary emphysema and minimal right base subsegmental atelectasis/scarring. No infiltrate or effusion. Heart not enlarged. Stomach distended with food/fluid. Noncontrasted stomach and bowel loops appear nonobstructed. Appendix not visualized. Worsening moderate diffuse colonic fecal stasis including rectum. No free fluid/air. Again chronic pancreatitis calcifications, tiny bilateral renal cysts, splenic calcified granulomas, prostate calcifications, and cholecystectomy clips. Remaining liver, pancreas, spleen, adrenal glands, kidneys, ureters, and bladder are unremarkable. There remains moderate scattered aortoiliac calcifications with minimal distal aortic ectasia. No pathologic retroperitoneal lymphadenopathy. Osseous structures intact again with osteopenia, mild degenerative changes throughout spine, and mild degenerative changes both hips. Impression: Again pulmonary emphysema, moderate diffuse fecal stasis, chronic pancreatitis calcifications, bilateral renal cysts, benign prostate calcifications, arteriosclerotic disease, chronic bony findings, and old granulomatous disease. No new/acute findings.
== END 2024-09-14 03:45 | disposition home or self-care (01) ==
LOC: ED 17:57
DX: R11.2 Nausea with vomiting, unspecified (principal); K59.00 Constipation, unspecified; R10.9 Unspecified abdominal pain; I10 Essential (primary) hypertension; E78.5 Hyperlipidemia, unspecified; E11.9 Type 2 diabetes mellitus without complications; Z79.4 Long term (current) use of insulin; Z79.84 Long term (current) use of oral hypoglycemic drugs; Z79.891 Long term (current) use of opiate analgesic; Z79.899 Other long term (current) drug therapy; Z72.0 Tobacco use
CPT/HCPCS: 36415; 74177; 80053; 81001; 83690; 84484; 85025; 96360; 96374; 96375; 99284; 99285; J2270; J2405